=== PATIENT | male | born 1985 | race African-American/Black ===

== ENCOUNTER 2019-03-15 01:08 | Emergency (ER) | payer SELFPAY ==
--- NOTE | 2019-03-15 01:55 | EDPHYS ---
Physician Documentation [facility] Name: Denis Talamantes Age: 33 yrs Sex: Male : 1985 Arrival Date: 03/15/2019 Time: 01:12 Bed 17 Private MD: ED Physician Han Bob HPI: 03/15 01:52 This 33 yrs old Black Male presents to ER via Ambulatory with complaints of Penile pm1 Problem. 01:52 The patient presents with multiple bumps on penis. Onset: The symptoms/episode pm1 began/occurred today, noticed it today. Modifying factors: The symptoms are alleviated by nothing, the symptoms are aggravated by nothing. Associated signs and symptoms: Pertinent negatives: abdominal pain, dysuria, fever, hematuria. Severity of symptoms: in the emergency department the symptoms are unchanged. The patient has not experienced similar symptoms in the past. The patient has not recently seen a physician. Historical: - Allergies: 01:30 No Known Allergies; mg2 - Home Meds: 01:30 None [Active]; mg2 - PMHx: 01:30 None; mg2 - PSHx: 01:30 None; mg2 - Immunization history:: Flu vaccine is up to date. - Social history:: Smoking status: Patient uses tobacco products, 1 pack every 2 days, Patient/guardian denies using alcohol, street drugs, IV drugs. - Ebola Screening: : No symptoms or risks identified at this time. ROS: 01:52 Constitutional: Negative for fever, chills, and weight loss, Eyes: Negative for injury, pm1 pain, redness, and discharge, ENT: Negative for injury, pain, and discharge, Neck: Negative for injury, pain, and swelling, Cardiovascular: Negative for chest pain, palpitations, and edema, Respiratory: Negative for shortness of breath, cough, wheezing, and pleuritic chest pain, Abdomen/GI: Negative for abdominal pain, nausea, vomiting, diarrhea, and constipation, Back: Negative for injury and pain. 01:52 MS/Extremity: Negative for injury and deformity, Skin: Negative for injury, rash, and discoloration, Neuro: Negative for headache, weakness, numbness, tingling, and seizure. 01:52 : Positive for multiple nonpainful bumps on penis, Negative for urinary symptoms, burning with urination, difficulty urinating, penile discharge, penile pain, testicular pain Exam: 01:52 Constitutional: This is a well developed, well nourished patient who is awake, alert, pm1 and in no acute distress. Head/Face: Normocephalic, atraumatic. Eyes: Pupils equal round and reactive to light, extra-ocular motions intact. Lids and lashes normal. Conjunctiva and sclera are non-icteric and not injected. Cornea within normal limits. Periorbital areas with no swelling, redness, or edema. ENT: Nares patent. No nasal discharge, no septal abnormalities noted. Tympanic membranes are normal and external auditory canals are clear. Oropharynx with no redness, swelling, or masses, exudates, or evidence of obstruction, uvula midline. Mucous membranes moist. Neck: Trachea midline, no thyromegaly or masses palpated, and no cervical lymphadenopathy. Supple, full range of motion without nuchal rigidity, or vertebral point tenderness. No Meningismus. Chest/axilla: Normal chest wall appearance and motion. Nontender with no deformity. No lesions are appreciated. Cardiovascular: Regular rate and rhythm with a normal S1 and S2. No gallops, murmurs, or rubs. Normal PMI, no JVD. No pulse deficits. Respiratory: Lungs have equal breath sounds bilaterally, clear to auscultation and percussion. No rales, rhonchi or wheezes noted. No increased work of breathing, no retractions or nasal flaring. Abdomen/GI: Soft, non-tender, with normal bowel sounds. No distension or tympany. No guarding or rebound. No evidence of tenderness throughout. Back: No spinal tenderness. No costovertebral tenderness. Full range of motion. Skin: Warm, dry with normal turgor. Normal color with no rashes, no lesions, and no evidence of cellulitis. MS/ Extremity: Pulses equal, no cyanosis. Neurovascular intact. Full, normal range of motion. 01:52 : Male external genitalia: Circumcision noted. lesion, of the head of penis and shaft of penis, painless, papular primarily along the randolph. 01:52 Neuro: Orientation: is normal, Motor: is normal, moves all fours. Vital Signs: 01:30 BP 121 / 78; Pulse 87; Resp 18; Temp 99.2(O); Pulse Ox 100% on R/A; Weight 99.79 kg; mg2 Height 5 ft. 9 in. (175.26 cm); Pain 0/10; 02:10 BP 131 / 70; Pulse 75; Resp 17; Pulse Ox 99% on R/A; rr5 01:30 Body Mass Index 32.49 (99.79 kg, 175.26 cm) mg2 MDM: 01:43 Patient medically screened. [facility] 01:52 Data reviewed: vital signs. Data interpreted: Pulse oximetry: on room air is 100 %. pm1 Interpretation: normal. Counseling: I had a detailed discussion with the patient and/or guardian regarding: the historical points, exam findings, and any diagnostic results supporting the discharge/admit diagnosis, the need for outpatient follow up, to return to the emergency department if symptoms worsen or persist or if there are any questions or concerns that arise at home. Administered Medications: No medications were administered Disposition: 03/15/19 01:54 Discharged to Home. Impression: Rash and other nonspecific skin eruption - human papillomavirus. - Condition is Stable. - Discharge Instructions: Human Papillomavirus. - Medication Reconciliation Form, Thank You Letter, Antibiotic Education, Prescription Opioid Use form. - Follow up: Emergency Department; When: As needed; Reason: Worsening of condition. Follow up: Private Physician; When: 2 - 3 days; Reason: Recheck today's complaints, Continuance of care, Re-evaluation by your physician. - Problem is new. - Symptoms have improved. Addendum: 03/17/2019 11:02 Co-signature as Attending Physician, Han Bob MD I agree with the assessment and c kraus plan of care. Signatures: Han Bob MD MD cha Marinas, Patrick, SANDRA SERVICENOW ADMINISTRATOR DEVELOPER pm1 Baudilio Rosas RN RN mg2 Gigi Garcia RN RN rr5 Corrections: (The following items were deleted from the chart) 03/15 01:56 01:54 03/15/2019 01:54 Discharged to Home. Impression: Rash and other nonspecific skin pm1 eruption. Condition is Stable. Forms are Medication Reconciliation Form, Thank You Letter, Antibiotic Education, Prescription Opioid Use. Follow up: Emergency Department; When: As needed; Reason: Worsening of condition. Follow up: Private Physician; When: 2 - 3 days; Reason: Recheck today's complaints, Continuance of care, Re-evaluation by your physician. Problem is new. Symptoms have improved. pm1 02:13 01:56 03/15/2019 01:54 Discharged to Home. Impression: Rash and other nonspecific skin rr5 eruption - human papillomavirus. Condition is Stable. Discharge Instructions: Human Papillomavirus. Forms are Medication Reconciliation Form, Thank You Letter, Antibiotic Education, Prescription Opioid Use. Follow up: Emergency Department; When: As needed; Reason: Worsening of condition. Follow up: Private Physician; When: 2 - 3 days; Reason: Recheck today's complaints, Continuance of care, Re-evaluation by your physician. Problem is new. Symptoms have improved. pm1
--- NOTE | 2019-03-15 01:55 | ER ---
Nurse's Notes [facility] Name: Denis Talamantes Age: 33 yrs Sex: Male : 1985 Arrival Date: 03/15/2019 Time: 01:12 Bed 17 Private MD: Diagnosis: Rash and other nonspecific skin eruption-human papillomavirus Presentation: 03/15 01:28 Presenting complaint: Patient states: i noticed 3 lumps/discolored at the tip of my mg2 penis tonight. denies pain,no discharged noted as well. Transition of care: patient was not received from another setting of care. Onset of symptoms was March 15, 2019. Risk Assessment: Do you want to hurt yourself or someone else? Patient reports no desire to harm self or others. Initial Sepsis Screen: Does the patient meet any 2 criteria? No. Patient's initial sepsis screen is negative. Does the patient have a suspected source of infection? No. Patient's initial sepsis screen is negative. Care prior to arrival: None. 01:28 Method Of Arrival: Ambulatory mg2 01:28 Acuity: HALIMA 4 mg2 Triage Assessment: 01:50 General: Appears in no apparent distress. comfortable, Behavior is calm, cooperative, rr5 appropriate for age. Historical: - Allergies: 01:30 No Known Allergies; mg2 - Home Meds: 01:30 None [Active]; mg2 - PMHx: 01:30 None; mg2 - PSHx: 01:30 None; mg2 - Immunization history:: Flu vaccine is up to date. - Social history:: Smoking status: Patient uses tobacco products, 1 pack every 2 days, Patient/guardian denies using alcohol, street drugs, IV drugs. - Ebola Screening: : No symptoms or risks identified at this time. Screenin:31 Abuse screen: Denies threats or abuse. Denies injuries from another. Nutritional mg2 screening: No deficits noted. Tuberculosis screening: No symptoms or risk factors identified. Fall Risk. Assessment: 02:00 General: Appears in no apparent distress. comfortable, Behavior is calm, cooperative, rr5 appropriate for age. Pain: Denies pain. Neuro: Level of Consciousness is awake, alert, obeys commands, Oriented to person, place, time, situation. Cardiovascular: Capillary refill < 3 seconds Patient's skin is warm and dry. 02:00 Respiratory: Airway is patent Respiratory effort is even, unlabored, Respiratory rr5 pattern is regular, symmetrical. GI: No signs and/or symptoms were reported involving the gastrointestinal system. : Lesions noted on penis. EENT: No signs and/or symptoms were reported regarding the EENT system. Derm: Skin is intact, Skin temperature is warm. Musculoskeletal: Capillary refill < 3 seconds, Range of motion: intact in all extremities. 02:13 Reassessment: Patient appears in no apparent distress at this time. Patient is alert, rr5 oriented x 3, equal unlabored respirations, skin warm/dry/pink. discharge instruction given and explained without complaints made. Vital Signs: 01:30 BP 121 / 78; Pulse 87; Resp 18; Temp 99.2(O); Pulse Ox 100% on R/A; Weight 99.79 kg; mg2 Height 5 ft. 9 in. (175.26 cm); Pain 0/10; 02:10 BP 131 / 70; Pulse 75; Resp 17; Pulse Ox 99% on R/A; rr5 01:30 Body Mass Index 32.49 (99.79 kg, 175.26 cm) mg2 ED Course: 01:12 Patient arrived in ED. mr 01:30 Triage completed. mg2 01:31 Arm band placed on. mg2 01:40 Jere Rao NP is PHCP. pm1 01:40 Han Bob MD is Attending Physician. pm1 01:51 Patient has correct armband on for positive identification. Bed in low position. Call rr5 light in reach. 02:01 Gigi Garcia RN is Primary Nurse. rr5 02:13 No provider procedures requiring assistance completed. Patient did not have IV access rr5 during this emergency room visit. Administered Medications: No medications were administered Outcome: 01:54 Discharge ordered by . pm1 02:11 Discharged to home ambulatory, with family. rr5 02:11 Condition: stable 02:11 Discharge instructions given to patient, family, Instructed on discharge instructions, follow up and referral plans. Demonstrated understanding of instructions, follow-up care. 02:13 Patient left the ED. rr5 Signatures: Carrol Lee Jere Rao, SANDRA OIL BOILER pm1 Baudilio Rosas RN RN mg2 Gigi Garcia RN RN rr5
== END 2019-03-15 02:13 | disposition home or self-care (01) ==
LOC: ER 01:08
DX: A63.0 Anogenital (venereal) warts (principal); Z72.0 Tobacco use